=== PATIENT | female | born 1990 | race Caucasian/White ===

== ENCOUNTER → 2017-04-05 09:02 | Outpatient (CLI) | payer MEDICAID, SELFPAY ==
[2017-04-05 12:23] LABS: Group B Strep DNA By PCR Negative (Negative); Internal Control PASS; Probe Check PASS; Specimen Processing Control PASS
== END ==
PROVIDERS: Visit Provider Obstetrics & Gynecology
DX: Z34.83 Encounter for supervision of other normal pregnancy, third trimester (principal)
CPT/HCPCS: 87081; 87653

== ENCOUNTER 2017-04-24 05:15 | Inpatient (IN) | payer MEDICAID, SELFPAY ==
[2017-04-18 10:38] VITALS: BMI 46.0
[2017-04-24] VITALS (20 sets, daily range): BP systolic 95–129; BP diastolic 42–78; PULSE 57–87; RESP 14–18; TEMP 36.2–37.1; O2SAT 93–99
[2017-04-24] MEDS: Lactated Ringers 1,000 ML 999 ML IV (05:50)
[2017-04-24 06:18] LABS: Hematocrit 37.7 % (37-47); Hemoglobin 12.8 g/dl (12.0-15.0); Mean Corpuscular Hgb 32.2 pg (27.0-32.0); Mean Corpuscular Volume 94.7 fL (81-99); Mean Platelet Vol. 10.3 fl (6.2-12.0); Platelet Count 207 K/mm3 (150-450); RBC Distribution Width CV 12.1 % (11.6-14.6); RBC Distribution Width SD 41.3 fl (35.1-43.9); Red Blood Count 3.98 M/mm3 (4.2-5.4)
[2017-04-24 06:23] LABS: Scan Indicated on CBC? Y/N NO
[2017-04-24 06:24] LABS: International Normalized Ratio 0.9; Partial Thromboplast Time 28.1 Seconds (24.1-36.2); Prothrombin Time (Protime)PT. 11.9 SECONDS (11.7-14.9)
[2017-04-24] MEDS: Lactated Ringers 1,000 ML 150 ML IV (06:49)
[2017-04-24] MEDS: Sodium Citrate/Citric Acid 30 ML UDC PO (07:13)
[2017-04-24] MEDS: Cefazolin 2 GM in 0.9% Normal Saline 100 ML IV (07:30)
--- NOTE | 2017-04-24 07:41 | OP.PCM_ITS ---
Operative Report Date of Procedure: 04/24/17 Surgeon: Demetrio Reynaga MD, FACOG Hides And Skins Colorer: TOBIAS Lopez Anesthesia: Ozzy Bailey CRNA Anesthesia: Spinal with Duramorph Pre-op Diagnosis: - -Prior Section And Desires Sterilization Post-Op Diagnosis: - -Prior Section And Desires Sterilization Procedure: Repeat Low Transverse Cervical Caesarean Section And Bilateral Tubal Occlusion with Filshie Clips Findings: Viable male with Apgars of 8/9 in occiput anterior presentation with clear amniotic fluid and normal three-vessel placenta. Indication: This is a 27-year-old 2 para 1 who presents for her second C -section and tubal ligation at 39+ weeks gestation. care has otherwise been uneventful. The patient has been counseled regarding the risk and indications of this procedure including the possibility of bleeding infection and injury to surrounding structures such as bowel bladder. She also understands the permanent nature of her tubal, the failure rate of 1-2%, and the availability of other nonpermanent control options. All questions were answered. Procedure: Patient was taken to the operating room where after spinal anesthesia was placed, the patient was prepped and draped in usual sterile fashion and a Young catheter was placed. The abdomen was entered through the patient's prior Pfannenstiel incision and peritoneum was entered bluntly. After developing a bladder flap on the lower uterine segment a low transverse incision was made on the uterus and head was easily delivered onto the operative field the nose mouth and oropharynx were bulb suctioned. Subsequently a viable male was born with Apgars of 8/9. The was noted to cry move all extremities vigorously on the operative field. The umbilical cord was doubly clamped and ligated and handed to the nursery personnel who were present for the delivery. Placenta was delivered and noted to be 3 vessels and normal. Uterus was exteriorized remaining placental tissue was removed. The uterus was then closed in 2 layers first with running locked Number 1 Vicryl suture followed by a second imbricating layer with Number 1 Vicryl suture. Number 1 Vicryl suture was then used in a horizontal mattress interrupted fashion to affect final hemostasis of the uterine incision line. Filshie clips were placed approximately 1-2 cm from the uterine fundus on each tube. Normal fallopian tubes and ovaries were visualized and the uterus was returned to the pelvis. Some adhesions of the omentum was noted to the anterior abdominal wall and taken down with cautery. Hemostasis was noted and rectus abdominis muscles were reapproximated in the midline with interrupted Number 1 Vicryl suture in a horizontal mattress fashion. Fascia was closed with running Number 1 Monocryl strata flex suture. Subcutaneous tissue was closed with running 3-0 strata flex Monocryl and then Vicryl suture and skin was closed with 4-0 monocryl Strata flex suture in a running subcuticular fashion. Steri strips, telfa, and tape were placed across the incision. The patient tolerated the procedure well and was taken to the recovery room in satisfactory condition. Sponge, needle, and instrument counts were all reportedly correct. EBL was 500 cc. Ancef 2 gms IV was given prior to the procedure. Spicemen to Pathology: None Complications: None
--- NOTE | 2017-04-24 07:42 | DCINST_ITS ---
Discharge Diet: No Restrictions Discharge Activity: May not drive while taking narcotic pain medications., May Shower, May Take a Tub Bath May resume sexual activity in: 4-6 weeks Lifting Restrictions: 20 pounds Additional Activity Instructions:: Nothing in the vagina for 4-6 weeks. You may return to work/school in 6 weeks. Call your doctor if your incision/area has: Continuous Slow Oozing, Sudden Increased Bleeding, Increased Pain/ Swelling, Increased Redness, Foul Smelling Discharge Call your doctor if you observe: Fever of 101 or Higher, Inability to urinate, Inability to have a bowel movement, Using more than one pad per hour Additional Instructions: If you experience any of the following, contact your healthcare provider. * Bleeding that soaks a pad every hour for 2 hours * Unrelieved incision or abdominal pain * Swelling, redness, discharge or bleeding from your incision or episiotomy site * Your incision begins to separate * Problems urinating (including inability to urinate or burning while urinating) . * Visual changes * Severe headache * Flu-like symptoms * Pain or redness in one of both of your breasts * Pain, warmth, tenderness or swelling in your legs, especially the calf area * Frequent nausea and vomiting * Symptoms of depression or anxiety If you experience any of the following, call 911 or go to the nearest Emergency Room. * Chest pain * Problems breathing * Seizure activity * Partial or complete paralysis of a body part, slurred speech, weakness or drooping of the face, or a sudden inability to walk or hold your balance Allergies/Adverse Reactions: Allergies No Known Allergies Allergy (Verified 04/18/17 10:39) Medications to take at Discharge Fluoxetine [Prozac] 20 mg PO DAILY 04/18/17 Gummies 1 tablet PO DAILY 04/18/17 Docusate Sodium [Colace] 100 mg PO BID PRN PRN #60 cap 04/24/17 Oxycodone [Oxyir] 5 mg PO Q6H PRN PRN 7 Days #20 tab 04/24/17 The following prescriptions were given: Oxycodone [Oxyir] 5 mg PO Q6H PRN PRN 7 Days #20 tab PRN Reason: Severe Pain (6-11/15) Docusate Sodium [Colace] 100 mg PO BID PRN PRN #60 cap PRN Reason: Constipation Follow-Up: Call to make an appointment with your doctor for an incision check in 1-2 weeks. You will also need a 6 week post- follow up appointment. Please Follow Up With: Demetrio Reynaga MD - [phone] When: Call to make an appointment for an incision check in 2 weeks.
[2017-04-24] MEDS: Oxytocin 30 units/NS 500 ml 30 UNITS/500 ML IV.SOLN 167 UNITS IV (07:58)
[2017-04-24] MEDS: Lactated Ringers 1,000 ML 100 ML IV ×2 (09:25→13:52)
[2017-04-24] MEDS: Ketorolac 30 MG/ML Syringe IV ×2 (12:28→17:31)
[2017-04-24] MEDS: Cefazolin 1 GM/50 ML BAG IV ×2 (15:01→22:41)
[2017-04-25] VITALS (8 sets, daily range): BP systolic 98–135; BP diastolic 52–60; PULSE 60–76; RESP 15–16; TEMP 36.6–37.1; O2SAT 96–99
[2017-04-25] MEDS: Lactated Ringers 1,000 ML 100 ML IV (01:23)
[2017-04-25 05:28] LABS: Hematocrit 32.9 % (37-47); Hemoglobin 10.9 g/dl (12.0-15.0); Mean Corp Hgb Conc 33.1 g/gl (32-36); Mean Corpuscular Hgb 32.1 pg (27.0-32.0); Mean Corpuscular Volume 96.8 fL (81-99); Mean Platelet Vol. 10.4 fl (6.2-12.0); Platelet Count 173 K/mm3 (150-450); RBC Distribution Width CV 12.2 % (11.6-14.6); RBC Distribution Width SD 41.2 fl (35.1-43.9); White Blood Count 9.1 K/mm3 (4.4-11.0)
[2017-04-25 05:34] LABS: Scan Indicated on CBC? Y/N NO
--- NOTE | 2017-04-25 06:47 | PN.OBGYN_ITS ---
Subjective: Patient without complaints. Tolerating diet well. Positive flatus. Breast- feeding going okay. - Physical Exam Vital Signs AF, VSS Temp Pulse Resp BP Pulse Ox 98.8 F 65 16 98/52 L 98 04/25/17 04:00 04/25/17 04:00 04/25/17 04:00 04/25/17 04:00 04/25/17 04:00 Oxygen Delivery Method Room Air Weight: 285 lb Body Mass Index (BMI) 46.0 Intake and Output for Last 24 Hours 04/23/17 04/24/17 04/25/17 23:59 23:59 23:59 Intake Total 4798 / 4798 Output Total 675 / 675 Balance 4123 / 4123 Laboratory Tests Past 24 Hrs 04/24/17 04/25/17 05:50 05:15 WBC 9.1 RBC 3.40 L Hgb 10.9 L Hct 32.9 L MCV 96.8 MCH 32.1 H MCHC 33.1 RDW 12.2 RDW Differential 41.2 Plt Count 173 MPV 10.4 Blood Type O NEGATIVE Antibody Screen NEGATIVE Wound is clean, dry, intact. Good urine output. Hemoglobin okay. Medical Necessity - Tobacco Use Smoking Status: Former smoker Assessment/Plan Doing well. Continuing present care.
[2017-04-25] MEDS: Ketorolac 30 MG/ML Syringe IV ×4 (06:53→18:13)
[2017-04-25] MEDS: Acetaminophen 500 MG Tablet 1000 MG PO (08:14)
[2017-04-25] MEDS: 0.9% Saline Lock 10 ML Syringe IV ×3 (08:15→18:13)
--- NOTE | 2017-04-25 09:06 | NURSING ---
Pt. states that she has felt depressed in the past two weeks. stating that it just her depression. Pt. denies depression worsening in the past two weeks, states that it has settled down.
[2017-04-25] MEDS: oxyCODONE 5 MG Tablet PO ×2 (10:06→19:42)
[2017-04-25] MEDS: FLUoxetine 20 MG Capsule PO (10:06)
[2017-04-26] MEDS: Ketorolac 30 MG/ML Syringe IV ×2 (00:01→05:18)
[2017-04-26 02:06] VITALS: BP 110/50; PULSE 70; RESP 16; TEMP 36.6; O2SAT 97
[2017-04-26] MEDS: oxyCODONE 5 MG Tablet PO (06:21)
[2017-04-26 07:41] VITALS: BP 129/62; PULSE 71; RESP 20; TEMP 36.2
--- NOTE | 2017-04-26 10:19 | PCM.PN.OB ---
Subjective: Pt without complaints. Tolerating diet well. Positive flatus. Ready to go home. - Physical Exam Vital Signs AF, VSS Temp Pulse Resp BP Pulse Ox 97.1 F L 71 20 H 129/62 H 97 04/26/17 07:41 04/26/17 07:41 04/26/17 07:41 04/26/17 07:41 04/26/17 02:06 Oxygen Delivery Method Room Air Weight: 285 lb Body Mass Index (BMI) 46.0 Intake and Output for Last 24 Hours 04/24/17 04/25/17 04/26/17 23:59 23:59 23:59 Intake Total 4798 / 4798 Output Total 675 / 675 1300 / 1300 Balance 4123 / 4123 -1300 / -1300 Wound CDI. Good UOP. Medical Necessity - Tobacco Use Smoking Status: Former smoker Assessment/Plan Doing well. Release to home with routine instructions. F/U 2 weeks.
[2017-04-26] MEDS: FLUoxetine 20 MG Capsule PO (10:33)
[2017-04-26 13:52] VITALS: BP 122/61; RESP 18; TEMP 36.9; O2SAT 98
== END 2017-04-26 14:00 | disposition home or self-care (01) | DRG 371 ==
PROVIDERS: Admitting Provider Obstetrics & Gynecology; Visit Provider Obstetrics & Gynecology
DX: O99.844 Bariatric surgery status complicating childbirth (principal); O34.211 Maternal care for low transverse scar from previous cesarean delivery; Z3A.39 39 weeks gestation of pregnancy; Z37.0 Single live birth; Z87.891 Personal history of nicotine dependence
CPT/HCPCS: 85027; 85610; 85730; 86850; 86900; 99218; J7120; A4216; G0378; J2405

== ENCOUNTER → 2019-11-05 | Outpatient (CLI) | payer MEDICAID, SELFPAY ==
[2017-04-18 10:38] VITALS: BMI 46.0
[2019-11-08 21:41] LABS: HPV APTIMA, High Risk Positive (Negative)
[2019-11-08 21:42] LABS: HPV Reflexed? YES, CHARGE PATIENT
== END | disposition home or self-care (01) ==
LOC: LABSPEC 11-06 10:09
PROVIDERS: Visit Provider Obstetrics & Gynecology
DX: N76.0 Acute vaginitis (principal); N77.1 Vaginitis, vulvitis and vulvovaginitis in diseases classified elsewhere; Z12.4 Encounter for screening for malignant neoplasm of cervix; Z11.3 Encounter for screening for infections with a predominantly sexual mode of transmission
CPT/HCPCS: 87624; 88175; G0145

== ENCOUNTER → 2019-12-05 | Outpatient (CLI) | payer MEDICAID, SELFPAY ==
[2017-04-18 10:38] VITALS: BMI 46.0
--- NOTE | 2019-12-05 | CER_PTH ---
PATIENT: CATHY VERMA LOC: [facility] U#:[id number] AGE/SX: 29/F ROOM: RE12/05/[address]: Dr. Demetrio Reynaga MD : 1990 BED: DIS: 12/05/2019 SPEC #: [id number] RECD: 12/05/19 17:39 STATUS: GRIS SONIDO #: [id number] SHALINI: 12/05/19 00:[address]: Demetrio Reynaga DEPT: SURGICAL PATHOLOGY RECD BY: Maia Contreras Tissues: A - Uterine cervix, NOS B - Endocervical Procedures: Surgery Specimen Level IV HEADER OPERATION: Colposcopy PRE-OP DIAGNOSIS: R87.810 TISSUE SUBMITTED: A - Four quadrant cervical biopsy, B - Endocervical curettings MICROSCOPIC DIAGNOSIS A. Cervix, four-quadrant biopsy: Focal HPV change, JIMBO I (LSIL). Mild chronic inflammation. See comment. B. Endocervix, curettings: Scant strips of benign superficial endocervix. No evidence of dysplasia. AM:sandra 12/09/19 COMMENT A. Results from immunohistochemistry ([id number]) for surrogate HPV marker (p16) will be reported separately. MICROSCOPIC DESCRIPTION Slides are reviewed. GROSS DESCRIPTION A - Received in fixative is one container labeled with the patient's name and designated four quadrant cervical biopsy. The specimen consists of multiple irregular fragments of chaparro soft tissue mixed with mucoid tissue that in aggregate measure 1 x 0.5 x 0.1 cm. The specimen is totally submitted in one cassette. B - Received in fixative is one container labeled with the patient's name and designated ECC. The specimen consists of multiple fragments of hemorrhagic soft tissue mixed with mucoid tissue that in aggregate measure 1.5 x 1 x 0.2 cm. The specimen is totally submitted in one cassette. / NIDHI:sandra 12/06/19 TC:3 CPT: 09377 x2
--- NOTE | 2019-12-05 | IMM_PTH ---
PATIENT: CATHY VERMA LOC: [facility] U#:[id number] AGE/SX: 29/F ROOM: RE12/05/[address]: Dr. Demetrio Reynaga MD : 1990 BED: DIS: 12/05/2019 SPEC #: [id number] RECD: 12/09/19 11:15 STATUS: GRIS SONIDO #: [id number] SHALINI: 12/05/19 00:[address]: Demetrio Reynaga DEPT: IMMUNOHISTOCHEMISTRY RECD BY: Madai Moeller Tissues: A - Uterine cervix, NOS Procedures: p16 (initial) KI-67 (add) PHYSICIAN & INSTITUTION [place] [id number] SPECIMEN INFORMATION: Tissue Source: A - Four quadrant cervical biopsy Clinical Info: R87.810 Specimen Number: [id number] CPT code: 37772, 84085 METHODOLOGY: Deparaffinized sections of prefer/formalin-fixed tissue or PAP/DQ stained slides are incubated with monoclonal/polyclonal antibodies/oligonucleotide probes. Localization is made via biotin free immunoperoxidase method. Appropriate controls are performed and reacted as expected. Results on target cell population are indicated in the following table: RESULTS: ANTIBODY / CLONE RESULT Block A P16 (E6H4) positive, focal, patchy Ki-67 (30-9) positive, low These tests were developed and their performance characteristics determined by [facility]. They may not have been cleared or approved by the U.[place]. Food and Drug Administration. The FDA has determined that such clearance or approval is not necessary. The above immunohistochemical/dualISH markers are ordered and reviewed by the Pathologist. INTERPRETATION: A. Cervix, four-quadrant biopsy: Consistent with focal HPV change, mild dysplasia (LSIL). AM:sandra 12/10/19
== END | disposition home or self-care (01) ==
LOC: LABSPEC 16:23
PROVIDERS: Visit Provider Obstetrics & Gynecology
DX: R87.810 Cervical high risk human papillomavirus (HPV) DNA test positive (principal)
CPT/HCPCS: 88305; 88341; 88342